=== PATIENT | female | born 1995 | race Caucasian/White ===

== ENCOUNTER 2022-06-03 21:19 | Emergency (ER) | payer OTHER, SELFPAY ==
[2022-06-03 21:23] VITALS: BP 110/65; PULSE 68; RESP 15; TEMP 37.2; O2SAT 100
[2022-06-03 21:51] LABS: Absolute Lymphocyte Count 1.69 X10^3/uL (0.83-4.51); Absolute Neutrophil Count 6.1 X10^3/uL (2.0-7.7); Basophil# 0.05 X10^3/uL; Basophil% 0.6 % (0-1); Eosinophil# 0.11 X10^3/uL; Eosinophils% 1.3 % (0-5); Hematocrit 42.5 % (37-47); Hemoglobin 13.6 g/dL (12.0-15.0); Lymphocyte # 1.69 X10^3/ul (0.83-4.51); Lymphocyte % 19.7 % (19-41); Mean Corpuscular Volume 90.6 fL (81-99); Mean Platelet Vol. 9.6 fl (6.2-12.0); Monocyte# 0.58 X10^3/uL; Monocyte% 6.8 % (0-10); NRBC Flagged by Analyzer 0 % (0-5); Neutrophil % 71.1 % (47-70); Platelet Count 349 K/mm3 (150-450); RBC Distribution Width CV 13.2 % (11.6-14.6); RBC Distribution Width SD 43.8 fl (35.1-43.9); Red Blood Count 4.69 M/mm3 (4.2-5.4); White Blood Count 8.6 K/mm3 (4.4-11.0)
[2022-06-03 22:05] LABS: Anion Gap 6 (5-15); BUN 9 mg/dL (7-18); BUN/Creat Ratio 12.1 RATIO (10-20); Calcium,Total 9.6 mg/dL (8.5-10.1); Chloride 107 mmol/L (98-107); Creatinine, Serum 0.74 mg/dL (0.55-1.02); EST Glomerular Filtration Rate 98 mL/min (>60); Est Glom Filt Rate - Afr Amer 119 mL/min (>60); Glucose 105 mg/dL (74-106); Potassium 3.5 mmol/L (3.5-5.1); Sodium Level 141 mmol/L (136-145)
--- NOTE | 2022-06-03 22:30 | EX.ED.DYSGE1 ---
HPI History of Present Illness Chief Complaint: Complaint Informant: patient and spouse/S.O. Narrative Narrative: Patient complains of a constipation of difficulty urinating and difficulty moving her bowels. This has been waxing and waning for about 1 to 2 months. She has never had peripheral numbness tingling or weakness. There is no genital area sensory changes. She states most of her issues over the last month or so has been bowel related. She has been feeling constipated. She has hard stools. She did do a bowel cleanse it sounds like it was pills and some herbal tea about a month ago. She moved her bowels a lot but then she went back to having similar slow bowel movements. She moved her bowels today but it was a small hard amount. Today she traveled to [place] with her mother. In the morning she had trouble urinating. She just could not get the urine to pass much. Later in the morning she did get it to pass and was feeling better. Then the same pattern repeated. She could not urinate there and all the way home. After she got home she did urinate again. Right now she does not feel as though she needs to urinate or move her bowels. She has no pain in her abdomen. She has not had nausea vomiting at any time. She is still eating. She is not having trouble eating. Patient is on no medicines. She did take [id number] cold medicine/Mucinex once today but I do not know if that had medicines other than guaifenesin in it. She does not take this daily. She does not have any history of bowel bladder or neurologic disease. PFSH PFSH Allergy/AdvReac Type Severity Reaction Status Date / Time No Known Allergies Allergy Verified 06/03/22 21:27 Social History Smoking Status: Never smoker ROS ROS ED Constitutional Constitutional ED: Denies chills, fever(s) or weight loss ENT ENT ED: Denies sore throat Cardiovascular Cardiovascular: Denies chest pain Respiratory/Chest Respiratory/Chest: Denies cough Gastrointestinal Gastrointestinal: Reports other Details: See history of present illness. Genitourinary Genitourinary ED: Reports other Details: Patient is having some difficulty urinating and she frequently feels as though she needs to go. But she is not having dysuria or burning or change in odor or color. Musculoskeletal Musculoskeletal: Denies back pain Integumentary Denies rash Neurologic Neurologic: Denies paresthesias or weakness Endocrine Endocrinology: Denies polydipsia Hematologic/Lymphatic Hematologic/Lymphatic: Denies lymphadenopathy Allergic/Immunologic Allergic/Immunologic ED: Denies urticaria EXAM Physical Exam Narrative Exam Narrative: Patient is awake alert no acute distress. She is sitting comfortably on the bed. HEENT shows moist mucous membranes no sign of trauma Neck shows no JVD Lungs are clear breathing is easy Heart is regular without murmur gallop or rub Abdomen is soft with normal bowel sounds and nondistended and nontender. shows no suprapubic fullness or tenderness. No CVA tenderness. Extremities show no rash or swelling. Pulses are normal. Neurologically she has normal sensation. She has normal gait and speech. No focal deficit. Skin shows no pallor or icterus. Const Vital Signs: 06/03/22 21:23 Temperature 98.9 F Temperature Source Temporal Pulse Rate 68 Respiratory Rate 15 Blood Pressure 110/65 Blood Pressure Mean 80 Pulse Ox 100 Oxygen Delivery Method Room Air MDM MDM MDM Narrative Medical decision making narrative: Patient CBC is completely normal. Her electrolytes are completely normal. Urinalysis is normal. Bladder scan was done that showed about 350 cc. Shortly after this she went to the bathroom and urinated 400 cc. Therefore, I think she completely emptied her bladder. She stated that this felt normal. She had no trouble urinating whatsoever. She has no pain. She feels completely normal and comfortable. My independent interpretation of her KUB x-ray shows no sign of obstruction or ileus. She does have some increased stool throughout the colon but I am not seeing a large amount in the rectum now. But she did have a bowel movement earlier even though it was hard and small this may have been enough to empty the rectal vault. Her symptoms did resolve after that. Patient's been having intermittent symptoms for a month or so. I think some of this may be due to constipation and putting pressure on the bladder making it hard to urinate at times. Since she has no fever, white count, tenderness, pain or other acute abnormality I do not think a CAT scan of the abdomen is necessary. Plan will be to get her on a stool softener and to see if regular larger bowel movements will help resolve her symptoms. If not she may need follow-up with urology and I will give her a referral for that. Lab Data Attestation: I reviewed the patient's lab results. Labs: Laboratory Results - last 24 hr 06/03/22 06/03/22 06/04/22 21:00 21:00 00:05 WBC 8.6 RBC 4.69 Hgb 13.6 Hct 42.5 MCV 90.6 MCH 29.0 MCHC 32.0 RDW Std Deviation 43.8 RDW Coeff of Aarti 13.2 Plt Count 349 MPV 9.6 Immature Gran % (Auto) 0.500 Neut % (Auto) 71.1 H Lymph % (Auto) 19.7 [place] % (Auto) 6.8 Eos % (Auto) 1.3 Baso % (Auto) 0.6 Absolute Neuts (auto) 6.1 Absolute Lymphs (auto) 1.69 Nucleated RBC % 0 Sodium 141 Potassium 3.5 Chloride 107 Carbon Dioxide 28.0 Anion Gap 6 BUN 9 Creatinine 0.74 Est GFR (MDRD) Af Amer 119 Est GFR (MDRD) Non-Af 98 BUN/Creatinine Ratio 12.1 Glucose 105 Calcium 9.6 Urine Color Yellow Urine Clarity Clear Urine pH 6.5 Ur Specific [place] 1.015 Urine Protein Negative Urine Glucose (UA) Normal Urine Ketones 50 H Urine Occult Blood Negative Urine Nitrite Negative Urine Bilirubin Negative Urine Urobilinogen Normal Ur Leukocyte Esterase Negative Urine RBC 0 SEEN Urine WBC 0 SEEN Ur Squamous Epith Cells 0 SEEN Urine Bacteria 0 SEEN Urine Mucus 0 SEEN Radiography Diagnostic Testing: Clinical Impression(s) from Imaging Studies KUB X-Ray 06/03/22 22:44 IMPRESSION: Non-obstructive bowel gas pattern. Electronically Signed: Denis Norwood MD at 23:03 EST , Discharge Plan Triage Chief Complaint: Complaint ED Provider: Jason Lucia Dx/Rx/DC Orders Clinical Impression: History of urinary hesitancy, Constipation Instructions: ED Constipation (Adult) Primary Care Provider: Ricky Gonzalez Referrals: Ricky Gonzalez DO [Primary Care Provider] - 3-5 Days Katie Enriquez MD [Med Staff - Active Staff] - 1 Week Activity Restrictions/Additional Instructions: Use [id number] MiraLAX. Start with twice a day and then slowly wean to once a day to keep bowels regular. Disposition Disposition: Home, Self Care
--- NOTE | 2022-06-03 22:44 | RAD_ITS ---
INDICATION: constipation EXAMINATION/TECHNIQUE: X-RAY - XR Abdomen 1 View COMPARISON: None FINDINGS: BOWEL GAS PATTERN: Non-obstructive. No bowel or stomach distention. FREE AIR: Not assessed on a single supine view. ORGANOMEGALY: Not seen. CALCIFICATIONS: No abnormal calcifications observed. LOWER CHEST: No acute abnormal finding. BONES AND SOFT TISSUES: No acute abnormal finding. RAD/Abdomen Single View (Portable) IMPRESSION: Non-obstructive bowel gas pattern. Electronically Signed: Denis Norwood MD at 23:03 EST ,
[2022-06-03 23:21] VITALS: RESP 16
[2022-06-04 00:10] LABS: Bacteria 0 SEEN /hpf (None Seen); Mucous, Urine 0 SEEN /hpf (<or=2+); Red Blood Cells-Urine 0 SEEN /hpf (0-5); Squamous Epithelial Cells - UA 0 SEEN /hpf (5-10); White Blood Cells 0 SEEN /hpf (0-5)
[2022-06-04 00:12] LABS: Color, Urine Yellow (Yellow); Glucose, Dipstick Normal (Normal); Ketone-Dipstick 50 mg/dl (Negative); Leukocyte Esterase-Dipstick Negative /ul (Negative); Nitrite-Dipstick Negative (Negative); Occult Blood-Urine Negative /ul (Negative); Protein-Dipstick Negative (Negative); Specific Gravity, Urine 1.015 (1.002-1.030); Urine Bilirubin Dipstick Negative (Negative); Urine Clarity Clear (Clear); Urine Urobilinogen Normal (Normal); Urine pH 6.5 (5.0 - 8.0)
[2022-06-04 00:34] LABS: Internal QC Validated? YES +Cl - CLEAR BKGD; Pregnancy, Urine Negative Negative
[2022-06-04 01:04] VITALS: BP 103/65; PULSE 60; RESP 15; O2SAT 100
== END 2022-06-04 01:07 | disposition home or self-care (01) ==
PROVIDERS: Emergency Provider Emergency Medicine; PCP Family Medicine; Visit Provider Emergency Medicine
DX: K59.00 Constipation, unspecified (principal); R39.11 Hesitancy of micturition
CPT/HCPCS: 74018; 80048; 81001; 81025; 85025; 99284